=== PATIENT | male | born 2000 | race Caucasian/White ===

== ENCOUNTER 2022-08-02 02:54 | Emergency (ER) | payer MEDICAID ==
[~2022-08-02] VITALS: Ht 162.6 cm; Wt 55.0 kg
[2022-08-02 03:50] VITALS: BP 118/78
== END 2022-08-02 03:53 | disposition home or self-care (01) ==
LOC: ER 03:05
DX: Z71.88 Encounter for counseling for socioeconomic factors (principal); Z59.02 Unsheltered homelessness; Z59.48 Other specified lack of adequate food
CPT/HCPCS: 99283

== ENCOUNTER 2022-11-14 14:17 | Emergency (ER) | payer MEDICAID ==
[~2022-11-14] VITALS: Ht 165.1 cm; Wt 53.0 kg
[2022-11-14 14:24] VITALS: BP 116/65
== END 2022-11-14 19:27 | disposition home or self-care (01) ==
LOC: ER 14:17
DX: F41.9 Anxiety disorder, unspecified (principal); Z98.890 Other specified postprocedural states
CPT/HCPCS: 99281